=== PATIENT | male | born 1970 | race Hispanic/Latino ===

== ENCOUNTER 2022-12-06 15:18 | Emergency (ER) | payer SELFPAY ==
[2022-12-06] MEDS ORDERED: Lidocaine 1% PF 5 ML VIAL ONE (15:51)
[2022-12-06] MEDS ORDERED: Boostrix 0.5 ML (Tdap) VIAL (>/=7 yrs of age) ONE (15:51)
[2022-12-06] MEDS ORDERED: Bacitracin 1 PK ONE (15:51)
== END 2022-12-06 17:30 | disposition home or self-care (01) ==
LOC: MADERS 15:18
DX: S61.213A Laceration without foreign body of left middle finger without damage to nail, initial encounter (principal); E11.9 Type 2 diabetes mellitus without complications; W23.1XXA Caught, crushed, jammed, or pinched between stationary objects, initial encounter; Y92.85 Railroad track as the place of occurrence of the external cause; Z23 Encounter for immunization
CPT/HCPCS: 12002; 90471; 90715